=== PATIENT | female | born 1935 | race Caucasian/White ===

== ENCOUNTER 2016-04-21 18:00 | Emergency (ER) | payer MEDICARE ==
[~2016-04-21] VITALS: Ht 172.7 cm; Wt 80.0 kg
[~2016-04-21 18:00] MED LIST: ALBU2.5I INH; ALPRTAB4 PO; ASPI81 PO; ATOR80TA PO; CHOL1CAP6 PO; COUM5TAB PO; DIGO0.12 PO; DILTCD180 PO; FLUTPOW EACH NARE; FURO1TAB93 PO; GABA100C4 PO; IPRA0.02 NEB; K-TA10TA5 PO; LEVEMIR SQ; LOSA25 PO; NEBUMIS6 INH; NITR0.4S SL; PROT40TA PO; SERT50 PO; VENTAER INH; [UNRECOGNIZED DRUG - CODE] PO
[2016-04-21 18:02] VITALS: BP 150/67; PULSE 91; RESP 20; TEMP 98.2; O2SAT 95
[2016-04-21] MEDS ORDERED: SODIUM CHLORIDE 0.9% FLUSH 5 ML FLUSH IVF PRN (18:45)
[2016-04-21] MEDS ORDERED: LORazepam 2 MG/ML VIAL IV PUSH ONE (18:45)
[2016-04-21] MEDS: RESP: ALBUTEROL 2.5 MG/IPRATROPIUM 0.5 MG NEB (SCH) INH ×2 (18:46→18:47)
[2016-04-21 18:48] VITALS: O2SAT 100
[2016-04-21] MEDS ORDERED: MULT-135 PO (18:58)
[2016-04-21] MEDS ORDERED: PANT40TA3 PO (18:58)
[2016-04-21] MEDS ORDERED: LISI-515 PO (18:58)
[2016-04-21] MEDS ORDERED: WARF-23 PO (18:58)
[2016-04-21] MEDS ORDERED: CART120C PO (18:58)
[2016-04-21] MEDS ORDERED: FLUT1SPR5 EACH NARE (18:58)
[2016-04-21] MEDS ORDERED: ASPI1TAB91 PO (18:58)
[2016-04-21] MEDS ORDERED: LORA-361 PO (18:58)
[2016-04-21] MEDS ORDERED: NITR0.4S SL (18:58)
[2016-04-21] MEDS ORDERED: K-TA10TA PO (18:58)
[2016-04-21] MEDS ORDERED: INSU1INJ13 SQ (18:58)
[2016-04-21] MEDS ORDERED: VENTAER INH (18:58)
[2016-04-21] MEDS ORDERED: WARF-21 PO (18:58)
[2016-04-21] MEDS ORDERED: VITA500T4 PO (18:58)
[2016-04-21] MEDS ORDERED: GABA100C4 PO (18:58)
[2016-04-21] MEDS ORDERED: LACTCAP8 PO (18:58)
[2016-04-21] MEDS ORDERED: ZITHTAB PO (18:58)
[2016-04-21] MEDS ORDERED: ATOR1TAB18 PO (18:58)
[2016-04-21] MEDS ORDERED: ALPR0.5T3 PO (18:58)
[2016-04-21] MEDS ORDERED: CHOL1TAB16 PO (18:58)
[2016-04-21] MEDS ORDERED: FURO1TAB60 PO (18:58)
[2016-04-21] MEDS ORDERED: STAR120T PO (18:58)
[2016-04-21] MEDS ORDERED: SERT-132 PO (18:58)
[2016-04-21 19:02] VITALS: O2SAT 99
[2016-04-21 19:21] LABS: BASOPHIL % 0.5 % (0.0-2.0); EOSINOPHIL # 0.3 TH/MM3 (0-0.4); EOSINOPHIL % 4.7 % (0.0-4.0); HEMATOCRIT 37.9 % (35.0-46.0); HEMO FLAGS DIFF FINAL; LYMPH % 35.5 % (9.0-44.0); LYMPHOCYTE # 2.4 TH/MM3 (1.0-4.8); MEAN CELL VOLUME 79.5 FL (80.0-100.0); MEAN CORPUSCULAR HEMOGLOBIN 25.8 PG (27.0-34.0); MEAN CORPUSCULAR HGB CONC 32.5 % (32.0-36.0); MONO % 14.9 % (0.0-8.0); NEUT % 44.4 % (16.0-70.0); PLATELET COUNT 204 TH/MM3 (150-450); RED BLOOD COUNT 4.77 MIL/MM3 (4.00-5.30); RED CELL DISTRIBUTION WIDTH 18.7 % (11.6-17.2); WHITE BLOOD COUNT 6.8 TH/MM3 (4.0-11.0)
--- NOTE | 2016-04-21 19:49 | RADRPT ---
EXAM DATE/TIME: 04/21/2016 19:09 [place] COMPARISON: CHEST SINGLE AP, November 27, 2015, 15:38. INDICATIONS : Patient has been coughing and short of breath since last Monday. MEDICAL HISTORY : Chronic obstructive pulmonary disease. SURGICAL HISTORY : Heart bypass. ENCOUNTER: Initial ACUITY: 4 - 6 days PAIN SCORE: 0/10 LOCATION: chest FINDINGS: A single view of the chest demonstrates the lungs to be symmetrically aerated without evidence of mas s, infiltrate or effusion. The cardiomediastinal contours again reveal compensated left ventricular cardiomegaly. Prior median sternotomy cardiac surgery appreciated. Osseous structures are intact. CONCLUSION: No acute disease. No significant change has occurred. Obi Bailon MD on April 21, 2016 at 19:47 Board Certified Radiologist. This report was verified electronically.
[2016-04-21 19:50] LABS: ANION GAP 9 MEQ/L (5-15); BICARBONATE 22.8 MEQ/L (21.0-32.0); BLOOD UREA NITROGEN 42 MG/DL (7-18); CHLORIDE 102 MEQ/L (98-107); CREATINE KINASE 134 U/L (26-192); GLOMERULAR FILTRATION RATE 41 ML/MIN (>89); SODIUM (NA) 134 MEQ/L (136-145)
[2016-04-21 19:51] LABS: POTASSIUM 4.4 MEQ/L (3.5-5.1)
[2016-04-21 20:03] LABS: CKMB 1.1 NG/ML (0.5-3.6)
--- NOTE | 2016-04-21 20:40 | PD ---
HPI . Cough and wheezing Chief Complaint: Respiratory Symptoms Time Seen by Provider: 18:30 Travel History International Travel<30 days: No Contact w/Intl Traveler<30days: No Traveled to known affect area: No History of Present Illness HPI Patient presents with cold symptoms for 4 days. She reports a history of COPD and states that she always develops a "chest cold" when she develops a cold. She denies fever. She states that she has yellow sputum. She states that she has an inhaler and she used it a total of 3 times yesterday and once today. She also has a nebulizer machine which she used once yesterday. She was seen at an urgent care center earlier and given one nebulizer there. She was then sent to us for further evaluation. PFSH Past Medical History Hx Anticoagulant Therapy: Yes (COUMADIN) Arthritis: Yes Asthma: No Atrial Fibrillation: Yes Autoimmune Disease: No Blood Disorders: No Anxiety: Yes Depression: Yes Heart Rhythm Problems: Yes (AFIB) Cancer: No Cardiovascular Problems: Yes (TRIPLE BYPASS) High Cholesterol: Yes Chemotherapy: No Chest Pain: Yes Congestive Heart Failure: Yes COPD: Yes Cerebrovascular Accident: No Coronary Artery Disease: Yes Diabetes: Yes Patient Takes Glucophage: No Diminished Hearing: No Endocrine: Yes Gastrointestinal Disorders: Yes ( ) GERD: Yes Glaucoma: No Genitourinary: No Headaches: Yes Hepatitis: No Hiatal Hernia: No Hypertension: Yes Immune Disorder: No Implanted Vascular Access Dvce: Yes Kidney Stones: No Musculoskeletal: Yes Neurologic: No Psychiatric: Yes Reproductive: No Respiratory: Yes (COPD) Immunizations Current: Yes Migraines: No Myocardial Infarction: No Pancreatitis: Yes Pneumonia: Yes Radiation Therapy: No Renal Failure: No Seizures: No Sickle Cell Disease: No Sleep Apnea: Yes (cpap) Thyroid Disease: No Ulcer: No ?: Not Menopausal: Yes Past Surgical History Abdominal Surgery: Yes (JONATHAN, COLON RESECTION, ADRENAL GLANDS REMOVED) AICD: No Appendectomy: No Arteriovenous Shunt: No Body Medical Devices: celiac trunk stents Cardiac Surgery: Yes (TRIPLE BIPASS IN 2002, RIGHT AND LEFT CAROTID) Cholecystectomy: Yes Coronary Artery Bypass Graft: Yes Ear Surgery: No Endocrine Surgery: No Eye Surgery: Yes (2 CATARACTS REMOVED) Genitourinary Surgery: No Gynecologic Surgery: No Insulin Pump: No Joint Replacement: Yes (METAL PLATE RT ANKLE) Oral Surgery: No Pacemaker: No Thoracic Surgery: No Tonsillectomy: Yes Other Surgery: Yes (FEB 21 2003 TRIPLE HEART BYPASS, 23 YRS AGO BREAST MASS REMOVAL & HEMMOROID) Social History Alcohol Use: No Tobacco Use: No (QUIT 15-20 YEARS AGO) Substance Use: No Allergies-Medications (Allergen,Severity, Reaction): Coded Allergies: Clindamycin (Verified Allergy, Severe, 11/27/15) Levaquin (Verified Allergy, Severe, Hives, 11/27/15) Penicillin (Verified Allergy, Severe, Hives, 11/27/15) Reglan (Verified Allergy, Severe, 11/27/15) Carafate (Verified Allergy, Unknown, unknown, 11/27/15) Dilaudid (Verified Allergy, Unknown, Hallucinations, 11/27/15) Reported Meds & Prescriptions Reported Meds & Active Scripts Active Reported Flonase Nasal Elcho (Fluticasone Nasal Elcho) 50 Mcg/Act Elcho 2 Elcho EACH NARE DAILY PRN Claritin (Loratadine) 10 Mg Tab 10 Mg PO DAILY Ventolin Hfa 18 GM Inh (Albuterol Sulfate) 90 Mcg/Act Aer 2 Puff INH Q4-6H PRN Nitrostat SL (Nitroglycerin) 0.4 Mg Subl 0.4 Mg SL DIRECTED PRN 1 tablet under the tongue as needed for chest pain. Repeat every 5 minutes for a total of 3 DOSES or call 911 if NO relief. Vitamin B-12 (Cyanocobalamin) 500 Mcg Tab 500 Mcg PO DAILY Multi Vitamin (Multiple Vitamin) 1 Tab Tab 1 Tab PO DAILY Probiotic (Lactobacillus Acidophilus) 1 Cap Cap 1 Cap PO DAILY Vitamin D3 (Cholecalciferol) 50,000 Unit Tab 50,000 Units PO WEEKLY K-Tab (Potassium Chloride) 10 Meq Tab 10 Meq PO BID Alprazolam 0.5 Mg Tab 0.5 Mg PO HS Sertraline (Sertraline HCl) 50 Mg Tab 50 Mg PO HS Atorvastatin (Atorvastatin Calcium) 80 Mg Tab 80 Mg PO HS Pantoprazole (Pantoprazole Sodium) 40 Mg Tab 40 Mg PO DAILY Lisinopril 20 Mg Tab 20 Mg PO DAILY Warfarin 5 Mg Tab 5 Mg PO MOFR Take 1 tablet (5mg) on Monday and Monday Warfarin 7.5 Mg Tab 7.5 Mg PO SUTUWETHSA Take 1 tablet (7.5mg) on Monday,Monday,Monday, and Monday Lasix (Furosemide) 40 Mg Tab 40 Mg PO DAILY May take additional dose if needed Aspirin Adult Low Strength (Aspirin) 81 Mg Tabdr 81 Mg PO DAILY Cartia Xt (Diltiazem ER 24 HR) 120 Mg Caper 120 Mg PO BID Starlix (Nateglinide) 120 Mg Tab 120 Mg PO TIDAC Tresiba Flextouch Pen Inj (Insulin Degludec Inj) 600 unit/3 ML Pen 70 Units SQ HS Zithromax Z-Ozzie (Azithromycin) 250 Mg Dspk 250 Mg PO DIRECTED 500 MG (2 tabs) day 1, then 1 tab days 2-5. Gabapentin 100 Mg Cap 200 Mg PO HS Review of Systems Except as stated in HPI: all other systems reviewed are Neg General / Constitutional: No: Fever, Chills Cardiovascular: No: Chest Pain or Discomfort Respiratory: Positive: Cough, Shortness of Breath, Wheezing Physical Exam Narrative GENERAL: The patient is speaking in almost a whisper. She is taking slow, deep breaths. SKIN: Warm and dry. HEAD: Atraumatic. Normocephalic. EYES: Pupils equal and round. ENT: No nasal bleeding or discharge. Mucous membranes pink and moist. NECK: Trachea midline. Neck is supple. CARDIOVASCULAR: Regular rate. Irregular rhythm. RESPIRATORY: No accessory muscle use. She has good air movement throughout. She does have wheezing. Her sats are 97-99% during her initial evaluation. GASTROINTESTINAL: Abdomen soft, non-tender, nondistended. MUSCULOSKELETAL: No obvious deformities. No edema. NEUROLOGICAL: Awake and alert. No obvious cranial nerve deficits. Motor grossly within normal limits. Normal speech. PSYCHIATRIC: Appropriate mood and affect; insight and judgment normal. Data Data Last Documented VS Vital Signs Date Time Temp Pulse Resp B/P Pulse Ox O2 Delivery O2 Flow Rate FiO2 04/21/16 19:02 99 Nasal Cannula 2 04/21/16 18:48 21 04/21/16 18:20 85 18 04/21/16 18:02 98.2 150/67 Orders Complete Blood Count With Diff (04/21/16 18:37) Basic Metabolic Panel (Bmp) (04/21/16 18:37) B-Type Natriuretic Peptide (04/21/16 18:37) D-Dimer (04/21/16 18:37) Ckmb (Isoenzyme) Profile (04/21/16 18:37) Troponin I (04/21/16 18:37) Iv Access Insert/Monitor (04/21/16 18:37) Electrocardiogram (04/21/16 18:37) Ecg Monitoring (04/21/16 18:37) Oximetry (04/21/16 18:37) Oxygen Administration (04/21/16 18:37) Chest, Single Ap (04/21/16 18:37) Sodium Chloride 0.9% Flush (Ns Flush) (04/21/16 18:45) Albuterol-Ipratropium Neb (Duoneb Neb) (04/21/16 18:45) Lorazepam Inj (Ativan Inj) (04/21/16 18:45) CKMB (04/21/16 18:57) CKMB% (04/21/16 18:57) Labs Laboratory Tests Test 04/21/16 18:57 White Blood Count 6.8 TH/MM3 Red Blood Count 4.77 MIL/MM3 Hemoglobin 12.3 GM/DL Hematocrit 37.9 % Mean Corpuscular Volume 79.5 FL Mean Corpuscular Hemoglobin 25.8 PG Mean Corpuscular Hemoglobin 32.5 % Concent Red Cell Distribution Width 18.7 % Platelet Count 204 TH/MM3 Mean Platelet Volume 9.0 FL Neutrophils (%) (Auto) 44.4 % Lymphocytes (%) (Auto) 35.5 % Monocytes (%) (Auto) 14.9 % Eosinophils (%) (Auto) 4.7 % Basophils (%) (Auto) 0.5 % Neutrophils # (Auto) 3.0 TH/MM3 Lymphocytes # (Auto) 2.4 TH/MM3 Monocytes # (Auto) 1.0 TH/MM3 Eosinophils # (Auto) 0.3 TH/MM3 Basophils # (Auto) 0.0 TH/MM3 CBC Comment DIFF FINAL Differential Comment D-Dimer Quantitative (PE/DVT) 0.81 MG/L FEU Sodium Level 134 MEQ/L Potassium Level 4.4 MEQ/L Chloride Level 102 MEQ/L Carbon Dioxide Level 22.8 MEQ/L Anion Gap 9 MEQ/L Blood Urea Nitrogen 42 MG/DL Creatinine 1.26 MG/DL Estimat Glomerular Filtration 41 ML/MIN Rate Random Glucose 122 MG/DL Calcium Level 9.2 MG/DL Total Creatine Kinase 134 U/L Creatine Kinase MB 1.1 NG/ML Troponin I LESS THAN 0.02 NG/ML B-Type Natriuretic Peptide 123 PG/ML MDM Medical Decision Making Medical Screen Exam Complete: Yes Emergency Medical Condition: Yes Differential Diagnosis Differential diagnosis of dyspnea includes but is not limited to congestive heart failure, pneumonia, wheezing, pneumothorax, pulmonary embolism Narrative Course Patient presents for evaluation and treatment of dyspnea. It sounds like she has bronchitis. She does have a history of CHF. CBC & BMP Diagram 04/21/16 18:57 D-dimer is 0.81. Cardiac enzymes are negative. BNP is 123. In the meantime, the patient has been treated with nebulizer treatments. She states that she feels much better. The patient reports she cannot take steroids because of hyperglycemia. The elevated d-dimer is not felt to be clinically significant at this point. Her diagnosis seems to be more respiratory. Diagnosis Primary Impression: COPD (chronic obstructive pulmonary disease) Qualified Code: J44.1 - Chronic obstructive pulmonary disease with acute exacerbation Med/Other Pt SpecificInfo: Prescription(s) given Scripts Budesonide Neb (Pulmicort Respules)0.5 Mg/2 Ml Neb0.5 Mg NEB Q12HR NEB #60 NEBULE Ref 0 Prov:Rosalva Coy MD 04/21/16 Ipratropium-Albuterol Neb (Duoneb)0.5-2.5 Mg/3 Ml Neb1 Nebule INH Q4HR NEB # 120 NEBULE Ref 0 Prov:Rosalva Coy MD 04/21/16 Disposition: 01 DISCHARGE HOME Condition: Stable Rosalva Coy MD Apr 21, 2016 20:39
[2016-04-21] MEDS ORDERED: IPRASOL INH (20:50)
[2016-04-21] MEDS ORDERED: BUDE.5I NEB (20:50)
[2016-04-21 22:00] VITALS: BP 165/90; PULSE 105; RESP 22; O2SAT 94
--- NOTE | 2016-04-22 16:56 | EKG ---
Date Performed: 04/21/2016 Time Performed: 20:34:17 PTAGE: 80 years EKG: ATRIAL FIBRILLATION WITH RAPID VENTRICULAR RESPONSE WITH ABERRANT CONDUCTION OR VENTRICULAR PREMATURE COMPLEXES INCOMPLETE RIGHT BUNDLE BRANCH BLOCK ST DEPRESSION, CONSIDER SUBENDOCARDIAL INJU RY ABNORMAL ECG PREVIOUS TRACING : 12/03/2015 19.21 Compared to previous tracing, the patient is now having wid e complex beats, potentially consistent with ventricular tachycardia. Clinical correlation suggested. DOCTOR: Amy Gage Interpretating Date/Time 04/22/2016 16:55:23
== END 2016-04-21 22:35 | disposition home or self-care (01) ==
LOC: NEPA 18:00
DX: I50.9 Heart failure, unspecified (principal); I48.91 Unspecified atrial fibrillation; E78.00 Pure hypercholesterolemia, unspecified; E11.9 Type 2 diabetes mellitus without complications; I10 Essential (primary) hypertension; K21.9 Gastro-esophageal reflux disease without esophagitis; Z95.1 Presence of aortocoronary bypass graft; Z79.01 Long term (current) use of anticoagulants; I45.10 Unspecified right bundle-branch block
CPT/HCPCS: 71010; 80048; 82550; 82552; 83880; 84484; 85025; 85379; 93005; 94640; 94664; 96374; 99284; J2060